=== PATIENT | female | born 1940 | race Caucasian/White ===

== ENCOUNTER 2018-01-03 22:34 | Outpatient (CLI) | payer MEDICARE | END 2018-01-03 22:35 | disposition EMS.NT | LOC: EMS 22:34 | PROVIDERS: ATTEND Surgery | DX: R05 Cough (principal) ==

== ENCOUNTER 2018-01-23 11:22 | Outpatient (CLI) | payer OTHER, MEDICARE | END 2018-01-23 11:23 | disposition critical access hospital (66) | LOC: EMS 11:22 | PROVIDERS: ATTEND Surgery | DX: M25.552 Pain in left hip (principal); M25.572 Pain in left ankle and joints of left foot; M25.522 Pain in left elbow; V03.10XA Pedestrian on foot injured in collision with car, pick-up truck or van in traffic accident, initial encounter; Y93.01 Activity, walking, marching and hiking; Y92.414 Local residential or business street as the place of occurrence of the external cause | CPT/HCPCS: A0425; A0429 ==

== ENCOUNTER 2018-01-23 11:40 | Emergency (ER) | payer OTHER, MEDICARE ==
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
--- NOTE | 2018-01-23 12:50 | XRAY Preliminary Report ---
Exam: XR HIP W/PELVIS 2-3V LT IMPRESSION: 1. Elongated calcific density adjacent to left greater trochanter could be related to enthesophyte or avulsion. [facility] SITE ID: [id number]
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
[2018-01-23] MEDS ORDERED: LIDOCAINE 1% 2 ML VIAL SUBQ STA (13:20)
[2018-01-23] MEDS ORDERED: TETANUS/DIPHTHERIA/PERTUSSIS 0.5 ML SYRINGE IM ONE (13:50)
--- NOTE | 2018-01-23 14:48 | XRAY Preliminary Report ---
Exam: XR ANKLE 3 VIEW LT IMPRESSION: 1. Remote Achilles calcific tendinitis. 2. Medial malleolar fracture. [facility] SITE ID: [id number]
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
[2018-01-23 16:06] VITALS: BP 146/59
== END 2018-01-23 16:10 | disposition home or self-care (01) ==
LOC: EDBD → EDUNIT# → ED 11:40
DX: S51.012A Laceration without foreign body of left elbow, initial encounter (principal); S50.02XA Contusion of left elbow, initial encounter; S70.02XA Contusion of left hip, initial encounter; S82.55XA Nondisplaced fracture of medial malleolus of left tibia, initial encounter for closed fracture; V03.10XA Pedestrian on foot injured in collision with car, pick-up truck or van in traffic accident, initial encounter; Y93.01 Activity, walking, marching and hiking; Y92.410 Unspecified street and highway as the place of occurrence of the external cause; Z23 Encounter for immunization
CPT/HCPCS: 12002; 29515; 90471; 96372; 99283

== ENCOUNTER 2018-04-09 03:20 | Outpatient (CLI) | payer MEDICARE | END 2018-04-09 03:21 | disposition short-term general hospital (02) | LOC: EMS 03:20 | PROVIDERS: ATTEND Surgery | DX: M25.562 Pain in left knee (principal); M25.561 Pain in right knee; M54.2 Cervicalgia; M79.1 Myalgia | CPT/HCPCS: A0425; A0429 ==

== ENCOUNTER 2018-04-26 18:10 | Outpatient (CLI) | payer MEDICARE | END 2018-04-26 18:11 | disposition short-term general hospital (02) | LOC: EMS 18:10 | PROVIDERS: ATTEND Surgery | DX: R53.1 Weakness (principal) | CPT/HCPCS: A0425; A0429 ==

== ENCOUNTER 2018-11-05 17:56 | Outpatient (CLI) | payer MEDICARE | END 2018-11-05 23:59 | disposition short-term general hospital (02) | LOC: EMS 17:56 | PROVIDERS: ATTEND Surgery | DX: M25.552 Pain in left hip (principal) | CPT/HCPCS: A0425; A0429; A0888 ==

== ENCOUNTER 2018-11-06 00:46 | Outpatient (CLI) | payer MEDICARE | END 2018-11-06 00:47 | disposition short-term general hospital (02) | LOC: EMS 00:46 | PROVIDERS: ATTEND Surgery | DX: R53.1 Weakness (principal) | CPT/HCPCS: A0425; A0429; A0888 ==

== ENCOUNTER 2019-03-25 19:20 | Outpatient (CLI) | payer MEDICARE, OTHER | END 2019-03-25 19:21 | disposition short-term general hospital (02) | LOC: EMS 19:20 | PROVIDERS: ATTEND Surgery | DX: M54.5 Low back pain (principal); W18.39XA Other fall on same level, initial encounter ==

== ENCOUNTER 2019-04-04 09:32 | Outpatient (CLI) | payer MEDICARE, OTHER | END 2019-04-04 09:33 | disposition short-term general hospital (02) | LOC: EMS 09:32 | PROVIDERS: ATTEND Surgery | DX: R53.1 Weakness (principal) | CPT/HCPCS: A0425; A0429; A0888 ==

== ENCOUNTER 2019-04-19 09:26 | Outpatient (CLI) | payer MEDICARE, OTHER | END 2019-04-19 09:27 | disposition short-term general hospital (02) | LOC: EMS 09:26 | PROVIDERS: ATTEND Surgery | DX: R53.1 Weakness (principal); R25.1 Tremor, unspecified; R47.9 Unspecified speech disturbances | CPT/HCPCS: A0425; A0427 ==